=== PATIENT | female | born 1940 | race Caucasian/White ===

== ENCOUNTER 2019-08-31 13:12 | Emergency (ER) | payer MEDICARE, OTHER, SELFPAY ==
--- NOTE | 2019-08-31 13:16 | XRR_ITS ---
PROCEDURE INFORMATION: Exam: XR Right Hand Exam date and time: 08/31/2019 1:33 PM Age: 78 years old Clinical indication: Injury or trauma; Fall; Initial encounter; Blunt trauma (contusions or hematomas; Finger; Right; Thumb; Injury date: Today TECHNIQUE: Imaging protocol: XR Right hand. Views: 3 or more views. COMPARISON: No relevant prior studies available. FINDINGS: Bones/joints: Severe thumb CMC erosive primary osteoarthritis. Horizontal intra-articular comminuted fracture through the base of the thumb distal phalanx. Possible one or two 3 mm avulsion fractures involving the head of the thumb proximal phalanx. Soft tissues: Normal. XR/XR hand RT min 3V* [id number] IMPRESSION: 1. Horizontal intra-articular comminuted fracture through the base of the thumb distal phalanx. 2. Possible one or two 3 mm avulsion fractures involving the head of the thumb proximal phalanx.
[2019-08-31 13:23] VITALS: BP 172/86; PULSE 92; RESP 14; TEMP 35.8; O2SAT 95; BMI 27.3
--- NOTE | 2019-08-31 13:39 | ED_ITS ---
HPI - Extremity Problem General: Chief complaint: Extremity Injury, Upper Stated complaint: r thumb injury Time Seen by Provider: 08/31/19 13:32 History of Present Illness: HPI Narrative: Patient is a 78-year-old female comes to the ED with right thumb pain after having a fall. Fall occurred just prior to arrival. Patient says she was adjusting her outdoor rug and she fell and the right side of her head hit the chair and she used her right hand to catch herself. Denies any loss of consciousness, nausea/vomiting, headache, vision changes or any neurological symptoms such as numbness or tingling in either extremity. She has pain and swelling on her right thumb and most of the pain and swelling is at the distal phalanx. Patient did not take any pain medications at home before arrival. Associated symptoms: Deny chest pain, fever(s) or rash Review of Systems Const: Denies: fever(s), chills or fatigue Eyes: Denies: change in vision or eye discomfort ENMT: Denies: throat pain, odynophagia, nasal discharge or nasal congestion Card: Denies: chest pain, palpitations, edema, swelling of feet/ankles, dyspnea on exertion or orthopnea Resp: Denies: dyspnea, productive cough or non-productive cough GI: Denies: abdominal pain, nausea, vomiting, diarrhea, constipation or hematochezia : Denies: flank pain, dysuria or hematuria Musc: Reports: extremity pain (right thumb) and extremity swelling (right thumb); Denies: neck pain or back pain Skin/Breast: Denies: rash or new lesions Neuro: Denies: headache(s), numbness in extremities or weakness in extremities [facility] ED PFSH: Social History Smoking and tobacco status: never smoked Physical Exam Const: COMMON NORMALS: patient oriented x3 and alert ORIENTATION/CONSCIOUSNESS: Yes oriented to person and Yes oriented to place HENMT: COMMON NORMALS: normocephalic and atraumatic HEAD & SCALP: normocephalic and atraumatic; no Singh's sign and no raccoon eyes FACE & SINUS: no ecchymosis, no erythema and no Facial tenderness on exam of face and sinuses MOUTH: Normal oral and palatal mucosa present THROAT: posterior oropharynx normal and uvula midline Eye: COMMON NORMALS: Equal, round and reactive pupils present, EOMs intact bilaterally and conjunctivae normal CONJUNCTIVA: Yes conjunctivae normal PUPIL: Yes Equal, round and reactive pupils present Neck/C-Spine: COMMON NORMALS: supple GENERAL: Yes normal visual inspection Resp: COMMON NORMALS: normal respiratory effort, No retractions, No use of accessory muscles and clear to auscultation bilaterally AUSCULTATION: clear to auscultation bilaterally Cardio: COMMON NORMALS: regular rate, regular rhythm, S1 normal heart sound present, S2 normal heart sound present, No gallops present (Cardio), No clicks present (Cardio), No murmurs present (Cardio) and Peripheral pulses 2+ throughout RATE: regular rate RHYTHM: regular rhythm HEART SOUNDS: S1 normal heart sound present and S2 normal heart sound present PERIPHERAL PULSES: Peripheral pulses 2+ throughout GI: COMMON NORMALS: Normal to inspection, nondistended, normoactive bowel sounds present, Soft to palpation, non-tender and no masses PALPATION: Yes S oft to palpation : COMMON NORMALS: Yes no CVA tenderness BLADDER/KIDNEY EXAM: Yes no CVA tenderness Back/Pelvis: COMMON NORMALS: no CVA tenderness Extremity: COMMON NORMALS: no pedal edema RIGHT UPPER EXTREMITY: Yes hand & digits Right hand and digits: Yes inspection (Thumb at the distal phalanx region had swelling and ecchymosis present.), Yes palpation (Mild tenderness upon palpation), Yes ROM exam (Some limited mobility in right thumb due to swelling not pain.) and Yes neurovascular exam (Intact, cap refill on thumb was normal) Neuro: COMMON NORMALS: patient oriented x3, CN's II-XII intact bilaterally, moves all extremities, no focal motor deficits and no sensory deficits noted SENSORIUM/ORIENTATION: Yes alert, Yes oriented to person and Yes oriented to place COORDINATION/BALANCE: [id number] test normal and [id number]-[id number] test normal GAIT: Yes Normal gait present MOTOR EXAM: 5/5 motor strength present throughout COORDINATION: [id number] test normal and [id number]-[id number]-[id number] test normal Skin: COMMON NORMALS: no rashes or lesions noted GENERAL SKIN EXAM: no rashes or lesions noted and dry skin Course Vital Signs: Vital signs: Vital Signs Temperature 96.4 F L 08/31/19 13:23 Pulse Rate 92 08/31/19 13:23 Respiratory Rate 14 08/31/19 13:23 Blood Pressure 172/86 08/31/19 13:23 Pulse Oximetry 95 08/31/19 13:23 MDM - Extremity (Nontraumatic) MDM Narrative: Medical decision making narrative: Patient is a 78-year-old female comes to the ED with right thumb pain after sustaining a fall. Patient states that she did fall and hit her head. Patient takes Eliquis. Physical exam showed some swelling, ecchymosis and tenderness upon palpation of the distal aspect of right thumb. Cap refill thumb was normal. Right hand x-ray showed closed nondisplaced distal phalanx fracture of thumb. CT of head showed no acute findings. Patient was placed in a thumb spica splint and orthopedic referral was made with case management. Patient was told to keep thumb spica splint on and to limit use of right hand. Take Aleve or Tylenol for pain. Patient understood and agreed with plan. Imaging Data^: Xray Ortho: Attestation: I personally reviewed and interpreted this imaging study as follows: My impression: Right hand x-ray shows a nondisplaced distal phalanx fracture of the first digit. CT Head: Attestation: I personally reviewed and interpreted this imaging study as follows: Radiologist's impression: [place] [id number] CT Scan Report Signed Patient: Taina Almaguer Unit #: [id number] : 1940 Age/Sex: 78 / F ADM Date: 08/31/19 Loc: ER Room/Bed: Attending Dr: Ordering Provider/Ordering MD: Delfino Morales Date of Service: 08/31/19 Procedure(s): CT head wo con* [id number] Accession Number(s): [id number] Report Number: [id number] WS: [id number] CT HEAD NONCONTRAST HISTORY: Fall and hit head TECHNIQUE: Contiguous axial imaging performed through the brain in 2.5 mm imaging. Bone and soft tissue windows. Sagittal and coronal reformats reviewed. All CT scans at [facility] use at least one of these dose optimization techniques: automated exposure control; mA and/or kV adjustment per patient size (includes targeted exams where dose is matched to clinical indication); or iterative reconstruction. DLP: 772.34 mGy.cm COMPARISON: None available. No acute intracranial hemorrhage, midline shift or mass effect. No atrophy or prior infarcts or herniation. Ventricles: Normal size with no hydrocephalus. Mild atherosclerosis intracranial carotid arteries. Paranasal sinuses: As visualized are clear. Mastoid air cells: Well pneumatized. Calvarium and scalp: Skull is intact with no soft tissue edema or swelling. CT/CT head wo con* [id number] IMPRESSION: Negative head CT. Dictated By: Amita Pavon DO Signed By: Amita Pavon DO Signed Date/Time: 08/31/191408 DD/ 140 Discharge Plan Discharge Patient Disposition: Home, Self-Care Clinical Impression: Fracture of phalanx of thumb, closed Qualifiers: Encounter type: initial encounter Phalanx: distal Fracture alignment: nondisplaced Laterality: right Qualified Code(s): S62.524A - Nondisplaced fracture of distal phalanx of right thumb, initial encounter for closed fracture Condition: Stable Discharge Orders: Discharge Order (Routine); Ordered 08/31/19 Ordered By: Delfino Morales Referrals: Toni José MD [Family Provider] - Discharge Diet: Regular Discharge Activity: Limit activity as instructed Patient Instructions: Fractures - Phalanx (Finger) Activity Restrictions/Additional Instructions: [facility] orthopedic clinic should be contacting you in the next several days to set up an appointment. Continue wearing splint, do not remove and limit activity with right hand. You can take Aleve or Tylenol to help with pain. Follow-up with your PCP in 7 to 10 days as well. Coding Level of Care Code ED [employer] Director for [facility]icki Fwd Exam Comprehensive
--- NOTE | 2019-08-31 13:49 | CT_ITS ---
WS: [id number] CT HEAD NONCONTRAST HISTORY: Fall and hit head TECHNIQUE: Contiguous axial imaging performed through the brain in 2.5 mm imaging. Bone and soft tiss ue windows. Sagittal and coronal reformats reviewed. All CT scans at [facility] use at ast one of these dose optimization techniques: automated exposure control; mA and/or kV adjustment pe r patient size (includes targeted exams where dose is matched to clinical indication); or iterative r econstruction. DLP: 772.34 mGy.cm COMPARISON: None available. No acute intracranial hemorrhage, midline shift or mass effect. No atrophy or prior infarcts or herniation. Ventricles: Normal size with no hydrocephalus. Mild atherosclerosis intracranial carotid arteries. Paranasal sinuses: As visualized are clear. Mastoid air cells: Well pneumatized. Calvarium and scalp: Skull is intact with no soft tissue edema or swelling. CT/CT head wo con* [id number] IMPRESSION: Negative head CT.
[2019-08-31] MEDS: acetaminophen 500 mg Tablet PO (14:00)
[2019-08-31 15:11] VITALS: PULSE 81; RESP 16; O2SAT 97
--- NOTE | 2019-09-01 14:56 | DCPLANNER ---
application release manager had message to schedule a follow up appointment for patient with ortho. application release manager called the ortho clinic, spoke with Rachel, gave clinic patients information. application release manager was told that patients information would be printed and reviewed. Clinic will call correctional counselor/case manager and patient with appointment information.
--- NOTE | 2019-09-03 14:07 | DCPLANNER ---
Patient had an appointment scheduled for 09.02.19 with ortho, patient did attend the appointment.
== END 2019-08-31 15:13 | disposition home or self-care (01) ==
PROVIDERS: Emergency Provider Physician Assistant; Family Provider Family Medicine
DX: S62.524A Nondisplaced fracture of distal phalanx of right thumb, initial encounter for closed fracture (principal); W19.XXXA Unspecified fall, initial encounter
CPT/HCPCS: 12345; 29280; 70450; 73130; 99281; 99283

== ENCOUNTER → 2019-09-30 11:04 | Outpatient (BNVA) | payer MEDICARE, OTHER, SELFPAY | PROVIDERS: Family Provider Family Medicine; Visit Provider Orthopaedic Surgery | DX: S62.524A Nondisplaced fracture of distal phalanx of right thumb, initial encounter for closed fracture (principal); X58.XXXA Exposure to other specified factors, initial encounter | CPT/HCPCS: 73140 ==

== ENCOUNTER → 2019-12-27 14:42 | Outpatient (BNVA) | payer MEDICARE, OTHER, SELFPAY | PROVIDERS: Family Provider Family Medicine; Referring Provider Dermatology; Visit Provider Dermatology | DX: Z12.83 Encounter for screening for malignant neoplasm of skin (principal); I78.1 Nevus, non-neoplastic; D18.01 Hemangioma of skin and subcutaneous tissue; L92.0 Granuloma annulare; L82.1 Other seborrheic keratosis | CPT/HCPCS: 99203 ==

== ENCOUNTER 2020-01-28 10:29 | Outpatient (CLI) | payer MEDICARE, OTHER, SELFPAY ==
--- NOTE | 2020-01-28 10:50 | XR_ITS ---
WS: [id number] Bone mineral density performed on a True Pivot IDXA, 01/28/2020 Clinical data: OSTEOPOROSIS Comparison study: DEXA scan, 06/14/2014. Findings: The first 4 lumbar vertebral bodies demonstrated the bone mineral density of 1.465 g/cm2 for a young adult T score of 2.4. Measurement of the left forearm reveals a bone mineral density of 0.810 g/sq cm with a young adult T score of -0.8. XR/XR DEXA axial skeleton* [id number] Impression: 1. Normal bone mineral density of the lumbar spine with a modest decrease in kyree ne mineral density compared to the prior study. 2. Normal bone mineral density of the left radius.
== END 2020-01-28 10:30 | disposition home or self-care (01) ==
LOC: RADWPI 10:34
PROVIDERS: PCP Family Medicine; Visit Provider Family Medicine
DX: M81.0 Age-related osteoporosis without current pathological fracture (principal)
CPT/HCPCS: 77080

== ENCOUNTER 2021-01-03 07:48 | Outpatient (CLI) | payer MEDICARE, OTHER, SELFPAY ==
--- NOTE | 2021-01-03 07:57 | US_ITS ---
WS: [id number] RIGHT UPPER QUADRANT ULTRASOUND HISTORY: RUQ ABDOMINAL PAIN/NAUSEA COMPARISON: None available. Liver: 13.4 cm in length. Normal size liver. No bile duct dilatation or mass. Gallbladder: Normally distended gallbladder with stones. CBD: 0.5 cm Pancreas: Normal size and echogenicity. Right kidney: 9.0 cm in length. Normal size and echogenicity. No hydronephrosis or mass. Aorta and IVC: Unremarkable abdominal aorta and IVC. No ascites. US/US gall bladder [id number] IMPRESSION: Cholelithiasis without acute cholecystitis.
== END 2021-01-03 07:49 | disposition home or self-care (01) ==
LOC: US 07:51
PROVIDERS: PCP Family Medicine; Visit Provider Family Medicine
DX: R10.11 Right upper quadrant pain (principal); R11.0 Nausea; K80.20 Calculus of gallbladder without cholecystitis without obstruction
CPT/HCPCS: 76705

== ENCOUNTER 2021-01-29 09:46 | Outpatient (CLI) | payer MEDICARE, OTHER, SELFPAY ==
--- NOTE | 2021-01-29 09:51 | NM_ITS ---
WS: [id number] NUCLEAR MEDICINE HIDA SCAN WITH GALLBLADDER EJECTION FRACTION HISTORY: RUQ ABDOMINAL PAIN COMPARISON: Gallbladder ultrasound 01/03/2021 TECHNIQUE: The patient was intravenously injected with 4.4 mCi of TC99m Mebrofenin. Immediate imaging over the right upper quadrant was followed by 5 minute image and additional images for a total of 60 minutes. Normal uptake of radiotracer throughout the liver. Activity identified in the gallbladder at 15 minutes and well distended by 60 minutes. Activity in the proximal small bowel was seen by 40 minutes. Good washout of the radiotracer from the liver by 60 minutes. The patient then drank 8 ounces of Ensure Plus. Ejection fraction at 60 minutes was 81%. Normal GB ej ection fraction is 35-75%. Post fatty meal symptoms: None. NM/NM hepatobiliary w phar* [id number] IMPRESSION: 1. Normal HIDA scan. 2. Normal gallbladder ejection fraction.
== END 2021-01-29 09:47 | disposition home or self-care (01) ==
LOC: NM 09:48
PROVIDERS: PCP Family Medicine; Visit Provider Family Medicine
DX: R10.11 Right upper quadrant pain (principal)
CPT/HCPCS: 78227; A9537

== ENCOUNTER 2022-01-09 11:55 | Outpatient (RCR) | payer MEDICARE, OTHER, SELFPAY | END 2022-02-04 23:59 | disposition home or self-care (01) | LOC: SPT 11:55 | PROVIDERS: PCP Family Medicine; Visit Provider Psychiatry & Neurology Neurology | DX: G47.52 REM sleep behavior disorder (principal); G20 Parkinson's disease; G31.84 Mild cognitive impairment of uncertain or unknown etiology; R11.0 Nausea; I95.1 Orthostatic hypotension; R32 Unspecified urinary incontinence | CPT/HCPCS: 97110; 97112; 97162; 97530 ==

== ENCOUNTER 2022-02-05 06:00 | Outpatient (RCR) | payer MEDICARE, OTHER, SELFPAY | END 2022-02-15 23:55 | disposition home or self-care (01) | LOC: SPT 06:00 | PROVIDERS: PCP Family Medicine; Visit Provider Psychiatry & Neurology Neurology | DX: G47.52 REM sleep behavior disorder (principal); G20 Parkinson's disease; R11.0 Nausea; I95.1 Orthostatic hypotension; R32 Unspecified urinary incontinence | CPT/HCPCS: 97110; 97112; 97530 ==

== ENCOUNTER 2022-02-19 07:11 | Outpatient (CLI) | payer MEDICARE, OTHER, SELFPAY ==
--- NOTE | 2022-02-19 07:19 | MR_ITS ---
WS: [id number] MRI BRAIN WITHOUT CONTRAST HISTORY: MILD COGNITIVE IMPAIRMENT COMPARISON: CT head 08/31/2019 TECHNIQUE: Diffusion imaging, multiplanar T1, T2 and FLAIR imaging obtained. No evidence for acute infarct or hemorrhage. Najera-white matter differentiation is normal. Very mild atrophy and mild bilateral small vessel ischemic disease. No large territory infarct. No as ymmetric atrophy. There is additional mild small vessel ischemic type changes in the stefanie. Ventricles and extra-axial spaces are normal. No inferior displacement of cerebellar tonsils. The sella turcica and pituitary gland are unremarkabl e. Dural venous sinuses and rosebud of Ellis demonstrate no abnormality on this unenhanced studies. Paranasal sinuses: Clear. Mastoid air cells: Normal. Calvarium and scalp: Intact. MR/MR head wo con* [id number] IMPRESSION: 1. No acute infarct or midline shift. 2. Mild atrophy and mild small vessel ischemic type changes. 3. Mild small vessel ischemic disease in the stefanie.
== END 2022-02-19 07:12 | disposition home or self-care (01) ==
PROVIDERS: PCP Family Medicine; Visit Provider Psychiatry & Neurology Neurology
DX: G47.52 REM sleep behavior disorder (principal); G20 Parkinson's disease; R11.0 Nausea; I95.1 Orthostatic hypotension; R32 Unspecified urinary incontinence; I67.82 Cerebral ischemia; G31.9 Degenerative disease of nervous system, unspecified
CPT/HCPCS: 70551

== ENCOUNTER → 2022-10-22 09:04 | Outpatient (BNVA) | payer MEDICARE, OTHER, SELFPAY | PROVIDERS: PCP Family Medicine; Visit Provider Family Medicine | DX: R53.83 Other fatigue (principal); G20 Parkinson's disease; E03.9 Hypothyroidism, unspecified; I10 Essential (primary) hypertension; I48.91 Unspecified atrial fibrillation; G47.33 Obstructive sleep apnea (adult) (pediatric) | CPT/HCPCS: 80053; 80061; 82607; 83036; 83880; 84443; 85025 ==

== ENCOUNTER → 2022-10-24 15:10 | Outpatient (BNVA) | payer MEDICARE, OTHER, SELFPAY | PROVIDERS: PCP Family Medicine; Visit Provider Dermatology | DX: D23.39 Other benign neoplasm of skin of other parts of face (principal); L82.1 Other seborrheic keratosis; L81.4 Other melanin hyperpigmentation; L57.0 Actinic keratosis | CPT/HCPCS: 17000; 99213 ==

== ENCOUNTER 2022-11-18 09:15 | Outpatient (CLI) | payer MEDICARE, OTHER, SELFPAY ==
--- NOTE | 2022-11-18 09:30 | USCV_ITS ---
Taina Almaguer Age: 82 Gender: F : 1940 Exam Date: 11/18/2022 09:59 Ordering Phys: Toni José MD Technologist: Jenifer Simon [place] [facility] [place]ication: CHF BP: 114 / 62 HR: 55 Rhythm: Other Technical Quality: Adequate MEASUREMENTS (Male / Female) Normal Values 2D ECHO LV Diastolic Diameter PLAX 4.3 cm 4.2 - 5.9 / 3.9 - 5.3 cm LV Systolic Diameter PLAX 2.4 cm IVS Diastolic Thickness 1.8 cm 0.6 - 1.0 / 0.6 - 0.9 cm IVS Systolic Thickness 1.6 cm LVPW Diastolic Thickness 0.5 cm 0.6 - 1.0 / 0.6 - 0.9 cm LVPW Systolic Thickness 2.2 cm LVOT Diameter 2.0 cm LV Ejection Fraction 2D Teich 75.9 % LV Ejection Fraction MOD 2C 76.6 % LV Ejection Fraction 2C AL 78.8 % LA Diameter 3.5 cm LA Width 3.6 cm LA Height 4.5 cm RA Width 2.9 cm RA Height 4.9 cm Aorta at Sinotubular Diameter 2.6 cm IVC Diameter 1.8 cm M-MODE Aortic Annulus Diameter 3.0 cm LA Ao Ratio MM 1.2 MV E Point Septal Separation 1.1 cm DOPPLER AV Peak Velocity 116.0 cm/s LVOT Peak Velocity 73.0 cm/s AV Area Cont Eq vti 1.9 cm squared AV Area Cont Eq pk 2.0 cm squared MV Peak Velocity 104.0 cm/s MV Area PHT 2.5 cm squared Mitral E to A Ratio 0.7 MV E' Velocity 35.5 cm/s Mitral E to MV E' Ratio 10.1 Mitral E to LV E' Lateral Ratio 10.7 Mitral E to LV E' Septal Ratio 9.5 TR Peak Velocity 245.5 cm/s TR Peak Gradient 24.1 mmHg Right Atrial Pressure 5.0 mmHg Pulmonary Artery Systolic Pressu 29.1 mmHg PV Peak Velocity 69.0 cm/s RV Acceleration Time 0.2 s RV Ejection Time 0.3 s RV AcT/ET 0.6 FINDINGS Left Ventricle Normal left ventricular size, systolic function and mildly increased wall thickness, with no regional wall motion abnormalities. Left ventricular ejection fraction is estimated at 60 %. Grade I diastolic dysfunction (abnormal relaxation filling pattern), normal to mildly elevated filling pressures. Right Ventricle Normal right ventricular size and systolic function. Right ventricular systolic pressure 27 mmHg. Right Atrium Normal right atrial size. Left Atrium Mildly increased left atrial size. Mitral Valve Structurally normal mitral valve. No mitral valve stenosis. Trace mitral valve regurgitation. Aortic Valve Structurally normal trileaflet aortic valve. No aortic valve stenosis. Trace aortic valve regurgitation. Tricuspid Valve Structurally normal tricuspid valve. No tricuspid valve stenosis. Trace tricuspid valve regurgitation. Pulmonic Valve Pulmonic valve not well visualized. No pulmonary valve stenosis. No pulmonary valve regurgitation. Pericardium No pericardial effusion. Aorta Normal size aortic root and proximal ascending aorta. IVC Normal IVC dimension with >50% respiratory change of the inferior vena cava. CONCLUSIONS 1. Normal left ventricular size, systolic function and mildly increased wall thickness, with no regional wall motion abnormalities. Left ventricular ejection fraction is estimated at 60 %. Grade I diastolic dysfunction (abnormal relaxation filling pattern), normal to mildly elevated filling pressures. 2. Trace aortic valve regurgitation. 3. No significant change when compared to study dated 10/09/2018. Antonietta Vernon MD (Electronically Signed) Final Date: 23 November 2022 16:03 S
== END 2022-11-18 09:16 | disposition home or self-care (01) ==
LOC: RAD 09:20
PROVIDERS: PCP Family Medicine; Visit Provider Family Medicine
DX: I35.1 Nonrheumatic aortic (valve) insufficiency (principal); R07.9 Chest pain, unspecified; I50.9 Heart failure, unspecified
CPT/HCPCS: 93306

== ENCOUNTER → 2023-10-27 13:11 | Outpatient (BNVA) | payer MEDICARE, SELFPAY | PROVIDERS: PCP Family Medicine; Visit Provider Nurse Practitioner Family | DX: D48.5 Neoplasm of uncertain behavior of skin (principal); L82.0 Inflamed seborrheic keratosis; D23.39 Other benign neoplasm of skin of other parts of face | CPT/HCPCS: 11102; 17110; 99213 ==

== ENCOUNTER → 2023-11-21 10:51 | Outpatient (BNVA) | payer MEDICARE, SELFPAY | PROVIDERS: PCP Family Medicine; Visit Provider Emergency Medicine | DX: R05.9 Cough, unspecified (principal) | CPT/HCPCS: 87426 ==

== ENCOUNTER → 2023-12-04 09:03 | Outpatient (BNVA) | payer MEDICARE, SELFPAY | PROVIDERS: PCP Family Medicine; Visit Provider Family Medicine | DX: I11.0 Hypertensive heart disease with heart failure (principal); I48.91 Unspecified atrial fibrillation; E03.9 Hypothyroidism, unspecified; E11.9 Type 2 diabetes mellitus without complications | CPT/HCPCS: 80053; 80061; 84443; 84484; 85025 ==

== ENCOUNTER → 2023-12-18 13:47 | Outpatient (BNVA) | payer MEDICARE, SELFPAY | PROVIDERS: PCP Family Medicine; Visit Provider Internal Medicine | DX: I11.0 Hypertensive heart disease with heart failure (principal); I50.9 Heart failure, unspecified; I48.91 Unspecified atrial fibrillation; R07.89 Other chest pain | CPT/HCPCS: 99205 ==

== ENCOUNTER 2023-12-30 11:25 | Outpatient (CLI) | payer MEDICARE, SELFPAY ==
[2023-12-30 11:50] LABS: Basophils # 0.1 10^3/uL (0.0-0.1); Basophils % 1.3 %; Eosinophils # 0.1 10^3/uL (0.0-0.8); Hematocrit 39.5 % (36-47); Lymphocytes # 2.2 10^3/uL (0.8-4.8); Lymphocytes % 25.8 %; Mean Corpuscular HGB Conc 31.6 g/dL (30-55); Mean Corpuscular Hemoglobin 27.4 pg (27-33); Mean Corpuscular Volume 86.6 fl (85-98); Mean Platelet Volume 9.1 fL (7.4-10.4); Monocytes # 0.6 10^3/uL (0.2-0.9); Neutrophils # 5.44 10^3/uL (1.8-7.7); Neutrophils % 64.5 %; Nucleated Red Blood Cells % 0 %; Platelet Count 299 10^3/cmm (157-399); Red Blood Count 4.56 10^6/uL (3.85-5.65); Red Cell Distribution Width 14.9 % (12.1-15.1); White Blood Count 8.42 10^3/uL (3.29-11.43)
[2023-12-30 12:04] LABS: INR 0.96 (0.83-1.21); Prothrombin Time (Patient) 13.1 Seconds (12.0-15.1)
[2023-12-30 12:09] LABS: Anion Gap 19.2 (5-19); Blood Urea Nitrogen 24 mg/dL (8-23); Calcium 9.3 mg/dL (8.5-10.5); Carbon Dioxide 23 mmol/L (22-29); Chloride 101 mmol/L (98-107); Glucose 119 mg/dL (65-115); Osmolality Calculated 293 mOsm/kg (285-295); Potassium 4.2 mmol/L (3.5-5.1); Sodium 139 mmol/L (136-145)
== END 2023-12-30 11:26 | disposition home or self-care (01) ==
LOC: LAB 11:26
PROVIDERS: PCP Family Medicine; Visit Provider Internal Medicine
DX: I20.0 Unstable angina (principal); I10 Essential (primary) hypertension; I48.91 Unspecified atrial fibrillation; R58 Hemorrhage, not elsewhere classified
CPT/HCPCS: 36415; 80048; 85025; 85610

== ENCOUNTER 2024-01-01 16:13 | Outpatient (CLI) | payer MEDICARE, SELFPAY ==
--- OUTSIDE RECORDS SUMMARY | 2024-01-01 16:18 | XMS_ITS | Continuity of Care Document ---
Author Name Unknown Organization [facility] Address [address] [place] [address]- Care Team Providers Care Courtesy Driver Name Role Phone Estefanía LYONS, Toni Givens Primary Care Physician [phone] Encounter [employer] Number [id number] Date(s): 04/05/22 - 08/28/23 [facility] [address], [address] [place], [place] [address] Attending Physician: Ryan Cardoza MD, Wallace Rajput Allergies, Adverse Reactions, Alerts Substance Reaction Severity Status amantadine Dizziness - light-headed Moderate Act zac Keflex Hives Moderate Active Levaquin Tendonitis Moderate Active Assessment and Plan Future Appointments Appointment Date:12/31/2023 01:00:00 PM Scheduled Provider:Patsy Grant NP Location:[facility] Appointment Type:Established Patient Medications carbidopa-levodopa 25 mg-100 mg oral tablet 1 tab, By mouth, TID, # 270 tab, Refill(s) 3, Route to Pharmacy Electronically, Pharmacy: [facility], [id number], 1 tab By mouth TID,x90 Days, 82.36, 12/25/22 15:15:00 CDT, kg, Weight (kg) (Clinical) Start Date: 12/25/22 Stop Date: 12/20/23 Status: Ordered carvedilol 3.125 mg oral tablet 3.125 mg = 1 tab, By mouth, BID, # 60 tab, Refill(s) 0 Start Date: 12/18/21 Status: Ordered cyanocobalamin 500 mcg oral tablet 500 mcg = 1 tab, By mouth, Daily, Refill(s) 0 Start Date: 12/25/22 Status: Ordered dilTIAZem 360 mg/24 hours oral capsule, extended release 360 mg = 1 cap, By mouth, Daily, # 30 cap, Refill(s) 0 Start Date: 12/18/21 Status: Ordered levothyroxine 50 mcg (0.05 mg) oral capsule 50 mcg = 1 cap, By mouth, Daily, # 30 cap, Refill(s) 0 Start Date: 12/18/21 Status: Ordered Melatonin 20 mg, at bedtime, Refill(s) 0 Start Date: 12/25/22 Status: Ordered Social History Social History Type Response Smoking Status Never smoker; Smokel ess tobacco use: Never; Has the patient smoked in the last 365 days, even once? No entered on: 12/25/22 Sex Female Patient Care team information Care Team Personnel Name: Estefanía LYONS, Toni Givens Position: 2 Restricted Providers Member Role: Primary Care Physician Address: Address: [address] [place] [id number]- Care Team Related Persons Name: LOIS BAL Name: JERRY SILVESTRE Name: JERRY SILVESTRE
[2024-01-01 16:19] VITALS: TEMP 36.9
--- NOTE | 2024-01-01 16:19 | PM.HP ---
Providers/Chief Complaint Admitting Physician: Humble Malik M.D Primary Care Provider: Toni José MD Chief Complaint: Admited History of Present Illness Taina Almaguer is a 83 year old female with past medical history of Parkinson's, atrial fibrillation not on anticoagulation secondary to side effects, hypothyroidism who has been having worsening chest pain and shortness of breath symptoms. Plan for coronary angiogram with possible PCI. Getting preadmitted for hydration as creatinine is 1.4-1.5. Review of Systems General: Reports: 10 or more systems reviewed and unremarkable except in HPI and below Const: Denies: fever(s) or chills Card: Reports: chest pain (pressure), palpitations, irregular heart rhythm, lightheadedness, pre-syncope and dyspnea on exertion; Denies: swelling of feet/ankles, syncope, orthopnea or leg pain with exertion Resp: Denies: dyspnea, productive cough or non-productive cough Musc: Reports: neck pain and back pain Neuro: Denies: headache(s) or dizziness Psych: Denies: anxiety, depression, suicidal ideation or homicidal ideation Reilly/Lymph: Reports: easy bruising and easy bleeding Medications/Allergies Home Medications Medication Instructions Recorded Confirmed Last Taken Type carbidopa 25 mg-levodopa 100 mg 1 tab PO TID #90 tabs 10/21/22 01/01/24 01/01/24 12:00 Rx tablet cyclosporine 0.05 % eye drops in a 1 drp ophthalmic (eye) Q12H #30 ea 10/21/22 01/01/24 01/01/24 Rx dropperette (Restasis) diltiazem HCl 360 mg capsule,24 360 mg PO DAILY #90 caps 10/16/23 01/01/24 01/01/24 Rx hr,extended release aspirin 325 mg tablet 325 mg PO BEDTIME 01/01/24 01/01/24 12/31/23 21:00 History levothyroxine 50 mcg tablet 50 mcg PO DAILY 01/01/24 01/01/24 01/01/24 History (Synthroid) melatonin 20 mg PO BEDTIME 01/01/24 01/01/24 12/31/23 History Allergies Allergy/AdvReac Type Severity Reaction Status Date / Time cephalexin [From Keflex] Allergy ALGY-Rash Verified 12/18/23 13:56 levofloxacin [From Levaquin] Allergy ALGY-Joint Verified 12/18/23 13:56 Pain PFSH Acute PFSH: Medical History Parkinson disease sees Dr. Davis at [facility]. Hypothyroid Hypertension Afib Surgical History History of hip replacement (~2009) LEFT H/O arthroscopic knee surgery (~2012) RIGHT KNEE Family History Denies family history of Diabetes Clotting disorder Chronic kidney disease (CKD) Cancer Social History Smoking and tobacco/nicotine status: unknown if used tobacco/nicotine Alcohol intake: never Substance/Drug Use: never Marital status: Single Physical Exam Narrative: GENERAL: Patient is alert, awake and oriented x3. [] NECK: No jugular vein distension. [] HEENT: No cyanosis. No icterus. No pallor. [] HEART: Regular S1 and S2. No murmur, rub or gallop. [] LUNGS: Clear to auscultate bilaterally. [] CENTRAL NERVOUS SYSTEM: Grossly nonfocal. [] EXTREMITIES: Lower extremities with 1+ edema bilaterally. Data 01/01/24 16:54 01/02/24 03:30 A&P Assessment and plan (1) Chest pain: (2) Congestive heart failure: (3) Hypertension: (4) Afib: Plan Pulmonary worsening typical symptoms. Plan for coronary angiogram with possible PCI tomorrow. N.p.o. past midnight. Start IV fluids @100cc/hour Continue aspirin Attestations Medical Necessity Statement*: Care not expected to cross 2 midnights. Coding Level of Care Code Acute Code for [facility] Fwd Diagnoses Chest pain R07.9 Congestive heart failure I50.9 Hypertension I10 Afib I48.91
[2024-01-01 16:58] VITALS: BMI 28.3
[2024-01-01 17:09] LABS: Basophils # 0.1 10^3/uL (0.0-0.1); Basophils % 1.7 %; Eosinophils # 0.2 10^3/uL (0.0-0.8); Eosinophils % 2.5 %; Hematocrit 37.8 % (36-47); Lymphocytes # 2.6 10^3/uL (0.8-4.8); Mean Corpuscular HGB Conc 31.7 g/dL (30-55); Mean Corpuscular Volume 84.9 fl (85-98); Mean Platelet Volume 9.2 fL (7.4-10.4); Monocytes # 0.7 10^3/uL (0.2-0.9); Monocytes % 9.4 %; Neutrophils # 3.94 10^3/uL (1.8-7.7); Neutrophils % 52.1 %; Nucleated Red Blood Cells % 0 %; Platelet Count 300 10^3/cmm (157-399); Red Blood Count 4.45 10^6/uL (3.85-5.65); Red Cell Distribution Width 14.9 % (12.1-15.1); White Blood Count 7.56 10^3/uL (3.29-11.43)
[2024-01-01] MEDS: sodium chloride 0.9% 1,000 ML 100 ML IV (17:14)
[2024-01-01 17:26] LABS: Alanine Aminotransferase < 5 U/L (0-33); Albumin Level 4.6 g/dL (3.5-5.2); Alkaline Phosphatase 86 U/L (35-105); Anion Gap 16.5 (5-19); Aspartate Amino Transferase 16 U/L (0-32); Blood Urea Nitrogen 26 mg/dL (8-23); Calcium 9.2 mg/dL (8.5-10.5); Carbon Dioxide 24 mmol/L (22-29); Chloride 102 mmol/L (98-107); Glucose 105 mg/dL (65-115); Osmolality Calculated 291 mOsm/kg (285-295); Potassium 4.5 mmol/L (3.5-5.1); Sodium 138 mmol/L (136-145); Total Bilirubin 0.2 mg/dL (0.15-1.2); Total Protein 7.6 g/dL (6.6-8.7)
[2024-01-01 20:00] VITALS: BP 164/58; PULSE 68; RESP 18; TEMP 36.9; O2SAT 96
[2024-01-01] MEDS: aspirin 325 mg Tablet PO (20:25)
[2024-01-01] MEDS: carbidopa-levodopa 25-100mg Tablet 1 EACH PO (20:25)
[2024-01-01 22:55] VITALS: PULSE 64
[2024-01-02] VITALS (32 sets, daily range): BP systolic 132–194; BP diastolic 55–101; PULSE 60–85; RESP 13–27; TEMP 36.6–37.1; O2SAT 92–97
[2024-01-02] MEDS: sodium chloride 0.9% 1,000 ML 100 ML IV (03:19)
[2024-01-02 04:28] LABS: Anion Gap 13.6 (5-19); Blood Urea Nitrogen 21 mg/dL (8-23); Calcium 8.7 mg/dL (8.5-10.5); Carbon Dioxide 24 mmol/L (22-29); Chloride 108 mmol/L (98-107); Creatinine Clr Calc Pharmacy 45.3359; Glucose 105 mg/dL (65-115); Osmolality Calculated 295 mOsm/kg (285-295); Potassium 4.6 mmol/L (3.5-5.1); Sodium 141 mmol/L (136-145)
--- NOTE | 2024-01-02 06:11 | PC.NURSE ---
contacted Dr Malik about patients medications being discontinued when registration switched the patients registration status as reg clinic. No new orders received
--- NOTE | 2024-01-02 06:15 | XACV_ITS ---
Exam Room: 2 Ht: 173 cm Wt: 80 kg BSA: 1.98 m2 Gender: Female : 1940 Any Known Allergies: Other Exam Priority: Routine Procedure(s): Procedure Description: Diagnostic procedure Procedure Description: Left Heart Catheterization Procedure Description: Left ventriculography Procedure Description: Coronary Angiography Diagnostic Cath Status: Elective Diagnostic Findings * No significant disease noted in the Left Main, Left Anterior Descending, Right, or Circumflex coronary arteries. * Coronary angiography shows right dominance. Conclusions 1. No significant disease noted in the Left Main, Left Anterior Descending, Right, or Circumflex coronary arteries. 2. Normal left ventricular systolic function. Ejection fraction of 55%. Recommendations * Aggressive medical therapy. * Outpatient cardiology follow up in 2 weeks. Interventional RX Recommendation: medical therapy and/or counseling Diagnostic RX Recommendation: medical therapy and/or counseling Anticoagulation: Heparin Ventriculography Ejection Fraction: 55.0 % Pressures Phase:Rest AO : 175 / 53 ( 95 ) @ 8:41:00 AM 120 / 62 ( 90 ) @ 8:43:00 AM 192 / 70 ( 121 ) @ 8:48:00 AM 191 / 70 ( 117 ) @ 8:48:00 AM LV : 189 / -9 / 22 @ 8:47:00 AM 190 / -6 / 25 @ 8:48:00 AM 192 / -6 / 27 @ 8:48:00 AM Valves Phase:DefaultPhase AV : 0.0 @ 7:54:05 AM AV Mean Gradient: 0.0 @ 7:54:05 AM Clinical Evaluation EBL: 5mL-10mL Procedural Details Procedure Consent Obtained. Current Diagnosis : Chest Pain. Pre-Procedure Time Out. Identified patient by full name and date of as verbalized by the patient/guarantor. Does the consent match the physician's order: Yes. Accurate & Complete Informed Consent: Yes. Inpatient/Outpatient History & Physical on Chart: Yes. If H&P is completed, is and addenduem needed: No; If yes, is the addendum complete: N/A. Visualize and Verify Site with Patient/Guarantor: N/A. Relevant Radiology Images available: Yes. Pre-op teaching completed and patient verbalized understanding. The risks, benefits, and alternatives of sedation and/or procedure were discussed by physician. The patient agrees to continue. Procedure started. [facility] Clinical Fraility Score: 3: Managing Well. Sec Reporting Consultant Indications: Suspected CAD. Chest Pain Symptom Assessment: Atypical Angina. Correct patient, site and procedure confirmed by cath team. Current diagnosis: Chest Pain. PERRLA. Strong, equal hand net developer programmer bilaterally. Lungs clear x 5 lobes. IV Site on Arrival: 18 gauge in the left anticubital. IV Fluids: 0.9% NaCl at KVO. 0 mL infused prior to blood bank laboratory technician. Oxygen started at 2liters/min via nasal canula. right groin was prepped with chloroprep then draped in the usual sterile fashion. right radial was prepped with chloroprep then draped in the usual sterile fashion. Physician notified. Baseline sample Acquired. HR: 0 BPM. Physician arrived. Physician scrubbed in. Immediate Pre-Procedure Time Out. Correct Patient: Yes; Correct Procedure: Yes; Correct Site: Yes; Correct Patient Position: Yes; Correct Supplies: Yes; Dried Flammable Prep: Yes; Blood Products Available: N/A;. Lidocaine 1% infiltrated to the right radial. Arterial access obtained. A 5 [place] islander TIG catheter in over wire. Multiple views taken of left coronary artery. Catheter redirected to the RCA. Multiple views taken of right coronary artery. Catheter removed over the exchange wire. A 5 [place] islander Angled Pig catheter in over wire. EDP Sample taken: LV 189/-10,22; HR: 69 BPM; SpO2: 99%. LV gram performed in WEISS @ 10 mL/second for a total of 30 mL. EDP Sample taken: LV 190/-7,25; HR: 70 BPM; SpO2: 99%. Pullback taken: LV 192/-7,27; AO 192/70(121); Mean: 0mmHg, Peak to Peak: 0mmHg, SEP: 8sec/min; HR: 72 BPM; SpO2: 99%. Catheter removed over the exchange wire. Vital chart was stopped. A TR Band was successful obtaining hemostatsis at the Right Radial artery insertion site. Post Procedure: Pulses reassessed and unchanged. PERRLA. Strong, equal hand net developer programmer bilaterally. No VTE prophylaxis required. Medication's Wasted: Lidocaine 1% = 18 mL. Medication's Wasted: Heparin = 1000 units. Medication's Wasted: Nitro = 49.8 mcg. Medication's Wasted: Other = Fentanyl 50mcg Versed 1 mg. Total IV fluids: 30 mL. Complications: None. Estimated blood loss: 5mL-10mL. Responsiveness - Normal response to verbal stimuli; alert and oriented, PERRLA. Airway - Unaffected, no intervention required; spontaneous ventilation. Circulation: W/N/L, pulses unchanged. Nausea/Vomiting: No. Procedure completed. Patient transferred by bed to CPRU. Access Site Site: Right Radial artery Sheath Size: 6 Fr Hemostasis Method: TR Band Hemostasis Success: Successful Procedure Medications Start: 7:26 AM Stop: 7:26 AM Medication: Benadryl Amount: 25 mg Route: I.V. Start: 7:35 AM Stop: 7:35 AM Medication: Versed Amount: 1 mg Route: I.V. Start: 7:35 AM Stop: 7:35 AM Medication: Fentanyl Amount: 50 mcg Route: I.V. Start: 7:39 AM Stop: 7:39 AM Medication: Nitrogylcerin Amount: 200 mcg Route: I.A. Start: 7:41 AM Stop: 7:41 AM Medication: Heparin Amount: 5000 units Route: I.V. I, the attending physician, have reviewed and verified all procedure medications. Yes, all medications given per verbal order History/Risk Factors Hypertension: Yes Dyslipidemia: No Peripheral Arterial Disease (PAD): No Myocardial Infarction (MS): No Obesity: No Renal Disease: No Tobacco Use: Never Prior Interventions PCI: No CABG: No Valve Surgery: No Report Signatures Finalized by Humble Malik MD on 01/09/2024 01:24 PM
--- NOTE | 2024-01-02 07:58 | PC.NURSE ---
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
--- NOTE | 2024-01-02 08:03 | W.PM.OPSUD ---
Surgery/Procedure H&P Update DATE OF PROCEDURE: January 02, 2024 DATE H&P PERFORMED: 01/01/24 H&P UPDATE INFORMATION: I have reviewed H&P completed within last 30 days, I have examined patient prior to procedure and No changes to prior documentation PREOP DIAGNOSIS: Worsening angina PRIMARY INDICATION FOR PROCEDURE: Worsening angina PLANNED PROCEDURE: Operation Date: 01/02/24 07:50 Proposed Procedures p Cardiac Catheterization(Not Applicable) - Humble Malik M.D Possible percutaneous coronary intervention PATIENT REASSESSED PRIOR TO SEDATION, WITH NO CHANGE NOTED: Yes PHYSICAL EXAM: alert, oriented x 3, clear to auscultation bilaterally and regular rate & rhythm AIRWAY EVAL/ANESTHESIA PLAN: normal airway, ASA III, Local Anesthesia, Risks, benefits & alternatives of sedation and/or procedure discussed and Patient agrees to continue as planned ADDITIONAL INFORMATION: Moderate sedation
[2024-01-02] MEDS: dilTIAZem ER (24HR) 180 mg Capsule 360 MG PO (08:56)
[2024-01-02] MEDS: carbidopa-levodopa 25-100mg Tablet 1 EACH PO ×2 (08:56→14:42)
--- NOTE | 2024-01-02 10:17 | PC.CHAP ---
Pastoral Care Encounter/Spiritual Assessment Type of Contact [] Declined inspector conveyor line visit [] Patient/Family/Request visit [] Outpatient visit [] Follow-up visit [] Physician referral [] Code/Alert [x] Routine visit [] Staff referral [] Actively dying [] Patient sleeping [] Family support [] [] Out of room [] Palliative care [] [] Receiving care in room [] Pre-surgical visit [] Trauma [] Long length of stay [] ICU visit [] Other: Relational/Emotional Strength [] Patient feels connected with others/family/visitors/staff [] Distress [] Loneliness/isolation [] Abandonment Spirituality of Patient [x] Person of Michelle [] Attends [employer] of their Michelle [x] Believes in Prayer [] Reads Bible or Rastafarian materials [] There are Spiritual issues to be addressed Screen Cleaner Interventions [] Prayer [x] Active listening [x] Non-anxious presence [] Spiritual/emotional support [] Crisis/trauma care [] Spiritual counseling [] Bereavement support [] Provided bereavement packet [] Provided Bible/devotional materials [] Provided toy/stuffed animal, coloring book to patient or family member [] Provided Communion [] Anointing/[place] [] Salvation [] Completed spiritual assessment [] Other: Impact on Illness or Injury [] Angry [] Fearful [] Anxious [] Often cries [] Exhaustion [] Unable to work [] Unable to attend zoroastrian [] Unable to walk/stand [] Unable to read [] Unable to drive [] Unable to eat/drink [] Unable to sleep [] Unable to be with family [] Patient intubated [] Other: Summary denied prayer said prayer was answered was going home soon Time spent with patient 10 min
[2024-01-02] MEDS: losartan 50 mg Tablet PO (10:26)
[2024-01-02] MEDS: sodium chloride 0.9% 1,000 ML 75 ML IV (10:26)
--- NOTE | 2024-01-02 11:17 | PC.SOCIAL ---
IMM Updated IMM dated and initialed, copy placed in chart and given to patient.
--- NOTE | 2024-01-02 11:54 | PM.DCS ---
Discharge Providers Date of Admission: 01/01/2024 Date of Discharge: January 02, 2024 Attending Provider at Discharge: Humble Malik M.D Primary Care Provider: Toni José MD Diagnoses at Discharge Discharge Diagnosis (1) Chest pain: Status: Inactive (2) Congestive heart failure: Status: Inactive (3) Hypertension: Status: Acute (4) Afib: Status: Acute Reason for Visit Reason for Visit: Admitted for pre-hydration prior to cardiac cath Brief History: 83 year old female with past medical history of Parkinson's, atrial fibrillation not on anticoagulation secondary to side effects, hypothyroidism who has been having worsening chest pain and shortness of breath symptoms. Plan for coronary angiogram with possible PCI. Getting preadmitted for hydration as creatinine is 1.4-1.5. Hospital Course Hospital Course Coronary angiogram did not reveal significant CAD. IV hydration post procedure with plans for outpatient BMP. Medical management discussed with patient. Physical Exam Narrative: GENERAL: Patient is alert, awake and oriented x3. [] NECK: No jugular vein distension. [] HEENT: No cyanosis. No icterus. No pallor. [] HEART: Regular S1 and S2. No murmur, rub or gallop. [] LUNGS: Clear to auscultate bilaterally. [] CENTRAL NERVOUS SYSTEM: Grossly nonfocal. [] EXTREMITIES: Lower extremities with 1+ edema bilaterally. Discharge Data Studies Completed and Pending Pending at discharge Category Date Time Status SHOWROOM CONSULTANT request for service Routine Exams 01/02/24 06:15 Taken Basic Metabolic Panel AM LABS Lab 01/03/24 04:00 Ordered Basic Metabolic Panel AM LABS Lab 01/04/24 04:00 Ordered Laboratory Results WBC 7.56 10^3/uL (3.29-11.43) 01/01/24 16:54 RBC 4.45 10^6/uL (3.85-5.65) 01/01/24 16:54 Hgb 12.00 g/dL (11.27-16.99) 01/01/24 16:54 Hct 37.8 % (36-47) 01/01/24 16:54 MCV 84.9 fl (85-98) L 01/01/24 16:54 MCH 27.0 pg (27-33) 01/01/24 16:54 MCHC 31.7 g/dL (30-55) 01/01/24 16:54 RDW 14.9 % (12.1-15.1) 01/01/24 16:54 Plt Count 300 10^3/cmm (157-399) 01/01/24 16:54 MPV 9.2 fL (7.4-10.4) 01/01/24 16:54 Neut % (Auto) 52.1 % 01/01/24 16:54 Lymph % (Auto) 34.0 % 01/01/24 16:54 [place] % (Auto) 9.4 % 01/01/24 16:54 Eos % (Auto) 2.5 % 01/01/24 16:54 Baso % (Auto) 1.7 % 01/01/24 16:54 Neut # (Auto) 3.94 10^3/uL (1.8-7.7) 01/01/24 16:54 Lymph # (Auto) 2.6 10^3/uL (0.8-4.8) 01/01/24 16:54 [place] # (Auto) 0.7 10^3/uL (0.2-0.9) 01/01/24 16:54 Eos # (Auto) 0.2 10^3/uL (0.0-0.8) 01/01/24 16:54 Baso # (Auto) 0.1 10^3/uL (0.0-0.1) 01/01/24 16:54 Nucleated RBC % (auto) 0 % 01/01/24 16:54 Nucleated RBCs # 0.0 /100WBC 01/01/24 16:54 Sodium 141 mmol/L (136-145) 01/02/24 03:30 Potassium 4.6 mmol/L (3.5-5.1) 01/02/24 03:30 Chloride 108 mmol/L (98-107) H 01/02/24 03:30 Carbon Dioxide 24 mmol/L (22-29) 01/02/24 03:30 Anion Gap 13.6 (5-19) 01/02/24 03:30 BUN 21 mg/dL (8-23) 01/02/24 03:30 Creatinine 1.1 mg/dL (0.5-0.9) H 01/02/24 03:30 GFR Calculation Not Reportable 01/02/24 03:30 Glucose 105 mg/dL (65-115) 01/02/24 03:30 Calculated Osmolality 295 mOsm/kg (285-295) 01/02/24 03:30 Calcium 8.7 mg/dL (8.5-10.5) 01/02/24 03:30 Total Bilirubin 0.2 mg/dL (0.15-1.2) 01/01/24 16:54 AST 16 U/L (0-32) 01/01/24 16:54 ALT < 5 U/L (0-33) 01/01/24 16:54 Alkaline Phosphatase 86 U/L (35-105) 01/01/24 16:54 Total Protein 7.6 g/dL (6.6-8.7) 01/01/24 16:54 Albumin 4.6 g/dL (3.5-5.2) 01/01/24 16:54 Globulin 3.0 g/dL (1.3-4.6) 01/01/24 16:54 Vitals Last Vital Signs Temp 98.3 F 01/02/24 11:43 Pulse 76 01/02/24 11:43 Resp 18 01/02/24 11:43 BP 133/78 01/02/24 11:43 Pulse Ox 94 01/02/24 11:43 O2 Del Method Room Air 01/02/24 11:43 Discharge Plan Discharge Patient Disposition: Home Prescriptions: Continued carbidopa-levodopa 25-100 mg tablet 1 tab PO TID Qty: 90 0RF cyclosporine [Restasis] 0.05 % dropperette 1 drp ophthalmic (eye) Q12H Qty: 30 0RF diltiazem HCl 360 mg capsule,extended release 24 hr 360 mg PO DAILY Qty: 90 3RF aspirin 325 mg tablet 325 mg PO BEDTIME Synthroid 50 mcg tablet 50 mcg PO DAILY melatonin 20 mg PO BEDTIME Discharge Orders: Discharge Order (Routine); Ordered 01/02/24 Ordered By: Humble Malik Referrals: Yuliya Horvath FNP [Nurse Practitioner] - 7-10 days (Please call Heart care services office to ask when is her appointment schedule on Friday. Thank You.) Diet: Cardiac and Low Salt Activity: Increase activity as tolerated Patient Instructions: Losartan (By mouth), Chronic Hypertension (DC), DASH Eating Plan (DC), Post Angiogram Home Care Instructions Activity Restrictions/Additional Instructions: Follow up with your primary doctor as scheduled. Keep a log of your blood pressure at home at least twice a day. Activity restriction for next 2 daus on right arm. Discharge Date/Time: 01/02/24 16:57 Discharge Attestations Time Spent in Discharge Care*: less than 30 min Quality Metrics Clinical Quality Measures [ No reported AMI, CVA or VTE this stay] Coding Level of Care Code Acute Code for [facility] Fwd Diagnoses Chest pain R07.9 Congestive heart failure I50.9 Hypertension I10 Afib I48.91
== END 2024-01-02 16:57 | disposition home or self-care (01) ==
LOC: CSU 16:34 → OPCSU 01-02 05:34 → CSU 01-02 05:34
PROVIDERS: PCP Family Medicine; Visit Provider Internal Medicine
DX: R07.9 Chest pain, unspecified (principal); I11.0 Hypertensive heart disease with heart failure; I50.9 Heart failure, unspecified; I48.91 Unspecified atrial fibrillation; G20.A1 Parkinson's disease without dyskinesia, without mention of fluctuations; E03.9 Hypothyroidism, unspecified; R94.4 Abnormal results of kidney function studies
CPT/HCPCS: 36415; 80048; 80053; 85025; 93458; 96374; 96375; 99152; 99153; C1769; C1887; C1894; J1200; J1644; J2250; J3010; J3490; J7030; Q9967

== ENCOUNTER → 2024-01-06 13:50 | Outpatient (BNVA) | payer MEDICARE, SELFPAY | PROVIDERS: PCP Family Medicine; Visit Provider Family Medicine | DX: I10 Essential (primary) hypertension (principal); I48.91 Unspecified atrial fibrillation | CPT/HCPCS: 80048 ==

== ENCOUNTER → 2024-01-08 08:28 | Outpatient (BNVA) | payer MEDICARE, SELFPAY | PROVIDERS: PCP Family Medicine; Visit Provider Nurse Practitioner Family | DX: Z09 Encounter for follow-up examination after completed treatment for conditions other than malignant neoplasm (principal) | CPT/HCPCS: 99213 ==

== ENCOUNTER → 2024-02-11 10:21 | Outpatient (BNVA) | payer MEDICARE, SELFPAY | PROVIDERS: PCP Family Medicine; Visit Provider Nurse Practitioner Family | DX: I48.91 Unspecified atrial fibrillation (principal) | CPT/HCPCS: 93005; 99214 ==

== ENCOUNTER → 2024-04-13 13:28 | Outpatient (BNVA) | payer MEDICARE, SELFPAY | PROVIDERS: PCP Family Medicine; Visit Provider Internal Medicine | DX: I48.0 Paroxysmal atrial fibrillation (principal); R53.83 Other fatigue; I11.0 Hypertensive heart disease with heart failure; I50.9 Heart failure, unspecified; Z79.01 Long term (current) use of anticoagulants | CPT/HCPCS: 36415; 80162; 99214 ==

== ENCOUNTER → 2024-05-07 10:28 | Day surgery (SDC) | payer MEDICARE, SELFPAY ==
--- NOTE | 2024-05-07 10:46 | ECG_ITS ---
[employer] Test Date: 2024-05-07 Pat Name: Taina Almaguer Department: Room: Gender: Female Patient Support Tech: : 1940 Requested By: Humble Malik Order Number: [id number] Shweta MD: Humble Malik M.D. Measurements Intervals [place] Rate: 60 P: 56 OR: 308 QRS: -23 QRSD: 103 T: 8 QT: 423 QTc: 423 Interpretive Statements SINUS RHYTHM WITH FIRST DEGREE AV BLOCK MODERATE VOLTAGE CRITERIA FOR LVH, CONSIDER NORMAL VARIANT [MEETS CRITERIA IN ONE OF: R(aVL), S(V1), R(V5), R(V5/V6)+S(V1)] POSSIBLE ANTERIOR MYOCARDIAL INFARCTION , PROBABLY OLD [30 ms Q WAVE IN V3/V4, OR R < 0.2 mV IN V4] INFERIOR MYOCARDIAL INFARCTION , PROBABLY OLD [40+ ms Q WAVE AND/OR ST/T ABNORMALITY IN II/aVF] Compared to ECG 02/11/2024 10:27:31 First degree AV block now present Atrial flutter no longer present ST (T wave) deviation no longer present Myocardial infarct finding still present Electronically Signed On 05-08-2024 13:33:46 HAIR ASSISTANT by Humble Malik M.D. [email or web address]
[2024-05-07 10:47] VITALS: BP 140/60; PULSE 93; RESP 18; TEMP 36.1; O2SAT 94
[2024-05-07 10:58] VITALS: BMI 25.8
--- NOTE | 2024-05-07 11:22 | PC.NURSE ---
Case aborted per Dr. Malik, patient converted to NSR with medication and shock not advised at this time.
== END ==
LOC: GILAB 10:29
PROVIDERS: PCP Family Medicine; Visit Provider Internal Medicine
PROC: (CPT 93312; principal; 2024-05-07 12:00)
PROC: 5A2204Z Restoration of Cardiac Rhythm, Single (ICD-10-PCS; 2024-05-07 12:00)
DX: I48.0 Paroxysmal atrial fibrillation (principal); Z53.8 Procedure and treatment not carried out for other reasons
CPT/HCPCS: 93005; J2704

== ENCOUNTER → 2024-06-03 08:55 | Outpatient (BNVA) | payer MEDICARE, SELFPAY | PROVIDERS: PCP Family Medicine; Visit Provider Internal Medicine | DX: R07.9 Chest pain, unspecified (principal); I48.0 Paroxysmal atrial fibrillation; I11.0 Hypertensive heart disease with heart failure; I50.9 Heart failure, unspecified; Z79.01 Long term (current) use of anticoagulants | CPT/HCPCS: 99214 ==

== ENCOUNTER → 2024-07-07 07:56 | Outpatient (BNVA) | payer MEDICARE, SELFPAY | PROVIDERS: PCP Family Medicine; Referring Provider Family Medicine; Visit Provider Psychiatry & Neurology Neurology | DX: G20.A1 Parkinson's disease without dyskinesia, without mention of fluctuations (principal); I95.1 Orthostatic hypotension | CPT/HCPCS: 99203 ==

== ENCOUNTER → 2024-11-25 09:15 | Outpatient (BNVA) | payer MEDICARE, SELFPAY | PROVIDERS: PCP Family Medicine; Visit Provider Nurse Practitioner Family | DX: D23.39 Other benign neoplasm of skin of other parts of face (principal); L81.4 Other melanin hyperpigmentation; L82.1 Other seborrheic keratosis; I78.8 Other diseases of capillaries; L85.3 Xerosis cutis | CPT/HCPCS: 99213 ==

== ENCOUNTER → 2025-01-06 12:11 | Outpatient (BNVA) | payer MEDICARE, SELFPAY | PROVIDERS: PCP Family Medicine; Visit Provider Family Medicine | DX: Z00.00 Encounter for general adult medical examination without abnormal findings (principal); I10 Essential (primary) hypertension; I48.0 Paroxysmal atrial fibrillation; G20.A1 Parkinson's disease without dyskinesia, without mention of fluctuations; E03.9 Hypothyroidism, unspecified | CPT/HCPCS: 80053; 80061; 84443; 85025 ==

== ENCOUNTER 2025-01-25 13:02 | Outpatient (CLI) | payer MEDICARE, SELFPAY ==
--- NOTE | 2025-01-25 13:00 | XR_ITS ---
WS: [id number] SCREENING DEXA SCAN [facility] CLINICAL INFORMATION: screening COMPARISON: 2019 FINDINGS: The L1-L4 bone mineral density measures 1.632 g/cm2. This corresponds to a T score score of 3.8 and Z score of 5.2. Left forearm bone mineral density measures 0.710. This corresponds to a T score of -1.9 and Z score of 1.0. Right femoral neck bone mineral density measures 1.01. This corresponds to a T score of 0.0 of and Z score of 1.9. XR/XR DEXA axial skeleton* [id number] IMPRESSION: Normal bone mineralization lumbar spine and RIGHT femoral neck. Osteopenia LEFT forearm. Patient's FRAX calculated 10 year probability for major osteoporotic fracture i s 14.6% and osteoporotic hip fracture is 2.3%. Bone density lumbar spine increased 11.4% Bone density RIGHT femoral neck decreased -11.2% Bone density LEFT forearm decreased -12.3%
== END 2025-01-25 13:03 | disposition home or self-care (01) ==
LOC: RAD 13:03
PROVIDERS: PCP Family Medicine; Visit Provider Family Medicine
DX: Z13.820 Encounter for screening for osteoporosis (principal); Z00.00 Encounter for general adult medical examination without abnormal findings; I10 Essential (primary) hypertension; I48.0 Paroxysmal atrial fibrillation; E03.9 Hypothyroidism, unspecified; M85.832 Other specified disorders of bone density and structure, left forearm
CPT/HCPCS: 77080